=== PATIENT | female | born 1985 | race African-American/Black ===

== ENCOUNTER 2023-05-06 14:15 | Outpatient (RCR) | payer OTHER, SELFPAY ==
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
--- NOTE | 2023-04-29 14:00 | OPREHPOC ---
Outpatient Therapy Plan of Care This is a Multidisciplinary Plan of Care that may contain components documented by all disciplines (PT, OT, and ST.) OT Problem 1 OT Problem #1 Knowledge Deficit OT Goal 1 Goal 1. Patient to be independent with instructed materials. Target Visit 10 OT Problem 2 OT Problem #2 Pain OT Goal 1 Goal 1. Patient to report reduced pain in the left hand /arm during ADLs, reporting pain at worst 4/10 or less. Target Visit 10 OT Problem 3 OT Problem #3 Impaired Strength OT Goal 1 Goal 1. 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
--- NOTE | 2023-05-13 14:41 | PCOTNOTE ---
Patient did not show up for scheduled appointment this date.
--- NOTE | 2023-05-20 14:35 | PCOTNOTE ---
Patient did not show for scheduled appointment. Voice mail was left and reminded of upcoming appointment.
--- NOTE | 2023-05-26 10:23 | PCOTNOTE ---
Due to patient missing her last 2 appts, called patient today to verify if she was coming to her appt tomorrow. Pt reports she has been sick and is not going to make it tomorrow. Cancelled to appt. She states she will call back to reschedule, hopefully next week.
--- NOTE | 2023-06-05 13:35 | OTOPDC ---
Assessment and note entered by Ortega Ross, SANJUANITA/Macie, CHT Discharge Notification 06/05/23 OT Clinical Summary Patient referred to OT with left hand pain. She attended the initial evaluation and 1 follow up appointment where she was issued ROM and strengthening for the left UE. She has not attended therapy since 05/06/23. Discharging due to poor attendance.
== END 2023-06-05 14:21 | disposition home or self-care (01) ==
LOC: ANHOT 14:15
PROVIDERS: PCP Physician Assistant; Visit Provider Physician Assistant
DX: M79.642 Pain in left hand (principal)
CPT/HCPCS: 97110; 97165; 99199

== ENCOUNTER 2024-09-29 01:52 | Day surgery (SDC) | payer OTHER, SELFPAY ==
[2024-09-27 09:39] VITALS: BMI 33.6
[2024-09-29] VITALS (8 sets, daily range): BP systolic 95–130; BP diastolic 59–100; PULSE 57–74; RESP 16–33; TEMP 36.5; O2SAT 99–100; BMI 33.5
[2024-09-29 11:16] LABS: BEDSIDEPREGUCG Negative (Negative)
[2024-09-29] MEDS: LACTATED RINGERS 1,000 ML 150 ML IV CONT (11:25)
--- NOTE | 2024-09-29 12:31 | P.PNAN_ITS ---
Anes - Initial Pre Proc Eval Procedure: Operation Date: 09/29/24 12:30 Proposed Procedures p Esophagogastroduodenoscopy & Colonoscopy - Jitendra Hampton MD Date/Time: 09/29/24 12:31 Surgeon: Jitendra Hampton MD Pre Op Diagnosis: Personal history infectious and parasitic, Melena Patient Data Age: 38 Gender: F Height: 1.7 m Weight: 97.2 kg Last Vital Signs Temp 97.7 F 09/29/24 11:13 Pulse 73 09/29/24 11:13 Resp 20 09/29/24 11:13 BP 102/70 09/29/24 11:13 Pulse Ox 100 09/29/24 11:13 O2 Del Method Room Air 09/29/24 11:13 Allergies Allergy/AdvReac Type Severity Reaction Status Date / Time Fish Containing Products Allergy Intermediate rash Verified 09/29/24 11:06 Home Medications ?Medication ?Instructions ?Recorded ?Confirmed ?Type cyclobenzaprine 10 mg tablet 10 mg PO TID 09/23/24 09/29/24 History linaclotide 145 mcg capsule 145 mcg Capsule#3 Samples 09/23/24 09/29/24 Sample (Linzess) linaclotide 145 mcg capsule 145 mcg PO QAM 1 month #30 caps 09/23/24 09/29/24 Rx (Linzess) linaclotide 290 mcg capsule 290 mcg Capsule#3 Samples 09/23/24 09/27/24 Sample (Linzess) omeprazole 20 mg capsule,delayed 20 mg PO DAILY 1 month #30 caps 09/23/24 09/29/24 Rx release pregabalin 75 mg capsule 75 mg PO BID 09/23/24 09/29/24 History sertraline 50 mg tablet 50 mg PO DAILY 09/23/24 09/29/24 History Laboratory Tests 09/29/24 11:15 POC Urine HCG, Qual Negative (Negative) Patient hx anesthesia problems: none Family hx anesthesia problems: none Results Review: All pre-operative results and documents have been reviewed as part of the pre- operative evaluation. [facility] Past Medical History Medical History (Updated 09/23/24 @ 10:07 by Negrita Azul, SPEECH LANGUAGE PATHOLOGY ASSISTANT-C) Obese Irritable bowel syndrome with predominant constipation History of Helicobacter pylori infection Bloody stools Abdominal pain IBS (irritable bowel syndrome) GERD (gastroesophageal reflux disease) History of IBS Hypertension H/O gastroesophageal reflux (GERD) Hx of blood clots Arthritis Allergies Anxiety Surgical History Surgical History (Updated 09/23/24 @ 09:31 by Shaila John MA) H/O splenectomy Family History Family History (Updated 09/23/24 @ 09:35 by Shaila John MA) Mother Diabetes mellitus Heart disease Hypertension Cerebrovascular accident Social History Social History (Updated 09/23/24 @ 09:33 by Shaila John MA) Smoking status: Never smoker Alcohol intake: never Substance use: never Substance use type: does not use Living arrangements: alone Spiritual care concerns: No Anes - Eval Final PreProcedure Day of Procedure 09/29/24 12:31 Patient weight: obese Heart: regular rate and rhythm Lungs: clear to auscultation Airway: Mallampati scale class II Neurological: alert and oriented Last oral intake: >/= 8 hours ASA classification: II Emergent: no Anesthetic plan: proceed Anesthesia type and monitoring: general GIVS and standard monitoring Results Review: All pre-operative results and documents have been reviewed as part of the pre- operative evaluation. Informed Consent: The patient's anesthetic plan and its attendant risks and benefits were discussed with the patient/family/POA. Questions were solicited and answers provided to the satisfaction of the patient/family/POA.
--- NOTE | 2024-09-29 12:38 | WPDHPUPDATE1 ---
History and Physical Update Update Date/Time: 09/29/24 12:38 History and Physical has been reviewed, including an updated exam of the patient. There are NO changes in the patient's condition. Risks, benefits, and alternatives have been discussed and questions answered. Patient agrees to proceed with procedure.
--- NOTE | 2024-09-29 12:50 | SUR.OPER ---
EGD end 1216 COLONOSCOPY START 1250
--- NOTE | 2024-09-29 12:53 | SUR.OPER ---
EGD end 1246 COLONOSCOPY START 1251
== END 2024-09-29 14:15 | disposition home or self-care (01) ==
PROVIDERS: Anesthesiology; PCP Physician Assistant; Visit Provider Internal Medicine Gastroenterology
PROC: 0DJ08ZZ Inspection of Upper Intestinal Tract, Via Natural or Artificial Opening Endoscopic (ICD-10-PCS; CPT 45378; principal; 2024-09-29 12:30)
DX: K58.1 Irritable bowel syndrome with constipation (principal); K64.8 Other hemorrhoids; K21.9 Gastro-esophageal reflux disease without esophagitis; E66.9 Obesity, unspecified; Z68.33 Body mass index [BMI] 33.0-33.9, adult
CPT/HCPCS: 45378; 43239; 88305; J2003; J2704; J7120